=== PATIENT | female | born 1945 | race Caucasian/White ===

== ENCOUNTER 2018-12-03 19:05 | Inpatient (IN) | payer MEDICARE, BC ==
[~2018-12-03] VITALS: Ht 157.5 cm; Wt 90.7 kg
[~2018-12-03 19:05] MED LIST: ALBU8HFA4 IH; ASPI81TA31 PO; ATOR40TA PO; BENA40TA67 PO; DILT240C2 PO; ESOM40CA PO; LEVO125T8 PO; METH500T4 PO; MULT1CAP34 PO; NITR0.4T48 SL; ONDA4TAB5 PO; PROC5TAB59 PO
[2018-12-03] MEDS ORDERED: NITROGLYCERIN 0.4 MG/TAB BOTTLE SL ONE ×2 (19:15→19:30)
[2018-12-03] MEDS ORDERED: NITROGLYCERIN OINT 1 GM PACKET TP ONE ×2 (19:15→19:30)
--- NOTE | 2018-12-03 19:16 | NUR ---
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
--- NOTE | 2018-12-03 19:20 | NUR ---
Pt. ambulated into ED w/ c/o 2/10 pressure like CP that radiated to shoulder, reports taking 1 nitro tab and 3 baby aspirin prior to arrival, denies WALTERS/F/C/N/V, skin is warm, dry, A/Ox4, pt. put on property assessment monitor,
--- NOTE | 2018-12-03 19:30 | NUR ---
at bedside for MSE, phleb. tech. at bedside for blood draw - specimens collected and sent to lab,
--- NOTE | 2018-12-03 19:31 | NUR ---
1 dose nitro tab given SL - CP resolved,
[2018-12-03 19:33] LABS: BASOPHILS # (AUTO) 0.1 K/uL (0.0-8.0); BASOPHILS % (AUTO) 1.1 % (0.0-2.0); EOSINOPHILS # (AUTO) 0.4 K/uL (0.0-0.7); EOSINOPHILS % (AUTO) 3.4 % (0.0-7.0); HEMATOCRIT 38.7 % (31.2-41.9); HEMOGLOBIN 12.9 g/dL (10.9-14.3); LYMPHOCYTES # (AUTO) 2.7 K/uL (20.0-40.0); LYMPHOCYTES % (AUTO) 25.7 % (20.5-51.5); MEAN CORPUSCULAR HEMOGLOBIN 28.2 uug (24.7-32.8); MEAN CORPUSCULAR HGB CONC 34 g/dL (32.3-35.6); MEAN CORPUSCULAR VOLUME 84.2 fL (75.5-95.3); MONOCYTES # (AUTO) 0.7 K/uL (2.0-10.0); MONOCYTES % (AUTO) 6.6 % (0.0-11.0); NEUTROPHILS # (AUTO) 6.7 K/uL (1.8-8.9); NEUTROPHILS % (AUTO) 63.2 % (38.5-71.5); PLATELET COUNT (AUTO) 417 K/uL (179-408); RED BLOOD CELL COUNT(AUTO) 4.59 MIL/uL (3.63-4.92); WHITE BLOOD COUNT (AUTO) 10.6 K/uL (3.8-11.8)
[2018-12-03 19:36] LABS: CARBON DIOXIDE 29 mmol/L (21-32); CHLORIDE 95 mmol/L (98-107); CREATININE 0.9 mg/dL (0.6-1.3); GLUCOSE 118 mg/dL (74-106); POTASSIUM 3.2 mmol/L (3.5-5.1); UREA NITROGEN, BLOOD 15 mg/dL (7-18)
[2018-12-03] MEDS ORDERED: ACETAMINOPHEN ES 500 MG TABLET PO ONE (19:45)
[2018-12-03 19:49] LABS: ALANINE AMINOTRANSFERASE 117 U/L (14-59); ALKALINE PHOSPHATASE 170 U/L (50-136); ASPARTATE AMINOTRANSFERASE 62 U/L (15-37); BILIRUBIN,DIRECT 0.1 mg/dL (0.0-0.2); BILIRUBIN,TOTAL 0.4 mg/dL (0.2-1.0)
[2018-12-03] MEDS ORDERED: ACETAMINOPHEN ES 500 MG TABLET ONE (19:53)
[2018-12-03] MEDS ORDERED: GABA-534 PO (20:00)
[2018-12-03] MEDS ORDERED: ACET1TAB14 PO (20:00)
[2018-12-03] MEDS ORDERED: PROC10TA29 PO (20:00)
[2018-12-03] MEDS ORDERED: TIOT4MIS3 IH (20:00)
[2018-12-03] MEDS ORDERED: DICY20TA11 PO (20:00)
[2018-12-03] MEDS ORDERED: BENZ-13 PO (20:00)
[2018-12-03] MEDS ORDERED: MAG355OR23 PO (20:00)
[2018-12-03] MEDS ORDERED: ONDA8TAB6 PO (20:00)
[2018-12-03] MEDS ORDERED: [UNRECOGNIZED DRUG - CODE] PO (20:00)
[2018-12-03] MEDS ORDERED: LEVO100T10 PO (20:00)
--- NOTE | 2018-12-03 20:16 | NUR ---
Gave pt. 2 tangerines for low potassium level per Dr. Lang, called [facility] for panel call
--- NOTE | 2018-12-03 20:20 | NUR ---
Awaiting call back from Dr. Gill Addendum: 12/03/18 at [address] Valente
--- NOTE | 2018-12-03 20:27 | NUR ---
Called [facility] for Cardio consult - Dr. Lai on the phone w/ Dr. Lang
--- NOTE | 2018-12-03 20:29 | NUR ---
Called for bed - pt. to go into room 205 w/ Janki CERVANTES
--- NOTE | 2018-12-03 20:35 | NUR ---
Called to give report - awaiting call back, pt. given apple juice, NAD
--- NOTE | 2018-12-03 21:05 | NUR ---
Dr. Lang called and gave report to Janki
--- NOTE | 2018-12-03 21:19 | NUR ---
Pt. taken off unit via stretcher by MARJORIE Morrison LVN, accompanied by , all belongings w/ pt.,
--- NOTE | 2018-12-03 21:20 | NUR ---
Received patient from the ER. No signs of acute distress noted. Patient had no complaints of pain or SOB. Heplock on the right hand is intact and patent. is at the bedside. Assessment done. Safety measures initiated. Bed is low and locked, call light is within reach. Will continue to monitor.
[2018-12-03 21:51] VITALS: BP 132/58
[2018-12-03] MEDS ORDERED: GABAPENTIN 300 MG CAPSULE PO PRN (23:30)
[2018-12-03] MEDS ORDERED: Z GUARD REMEDY PASTE 57 GM TUBE TOP PRN (23:30)
[2018-12-03] MEDS ORDERED: ONDANSETRON 4 MG/2 ML VIAL IV PRN (23:30)
[2018-12-03] MEDS ORDERED: ACETAMINOPHEN 325 MG TABLET PO PRN (23:30)
[2018-12-03] MEDS ORDERED: ACETAMINOPHEN/CODEINE 300-60 MG TABLET PO PRN (23:30)
[2018-12-04 00:05] VITALS: BP 123/57
[2018-12-04] MEDS ORDERED: ALBUTEROL SULFATE 2.5 MG/3 ML NEBU IH PRN (00:30)
[2018-12-04] MEDS ORDERED: ALBUTEROL SULFATE 8 GM HFA.AER.AD IH SCH ×2 (01:00)
[2018-12-04 04:00] VITALS: BP 125/58
[2018-12-04 05:54] LABS: BASOPHILS # (AUTO) 0.1 K/uL (0.0-8.0); EOSINOPHILS # (AUTO) 0.4 K/uL (0.0-0.7); EOSINOPHILS % (AUTO) 4.9 % (0.0-7.0); HEMATOCRIT 35.8 % (31.2-41.9); HEMOGLOBIN 11.9 g/dL (10.9-14.3); LYMPHOCYTES # (AUTO) 2.5 K/uL (20.0-40.0); LYMPHOCYTES % (AUTO) 28.5 % (20.5-51.5); MEAN CORPUSCULAR HEMOGLOBIN 27.8 uug (24.7-32.8); MEAN CORPUSCULAR HGB CONC 33 g/dL (32.3-35.6); MEAN CORPUSCULAR VOLUME 83.8 fL (75.5-95.3); MONOCYTES # (AUTO) 0.9 K/uL (2.0-10.0); NEUTROPHILS # (AUTO) 4.8 K/uL (1.8-8.9); NEUTROPHILS % (AUTO) 55.6 % (38.5-71.5); PLATELET COUNT (AUTO) 363 K/uL (179-408); RED BLOOD CELL COUNT(AUTO) 4.27 MIL/uL (3.63-4.92); WHITE BLOOD COUNT (AUTO) 8.7 K/uL (3.8-11.8)
[2018-12-04 06:18] LABS: ALANINE AMINOTRANSFERASE 94 U/L (14-59); ALKALINE PHOSPHATASE 139 U/L (50-136); ASPARTATE AMINOTRANSFERASE 47 U/L (15-37); BILIRUBIN,TOTAL 0.3 mg/dL (0.2-1.0); CARBON DIOXIDE 33 mmol/L (21-32); CHLORIDE 97 mmol/L (98-107); CHOLESTEROL 137 mg/dL (<200); CREATININE 0.8 mg/dL (0.6-1.3); GLUCOSE 107 mg/dL (74-106); HDL CHOLESTEROL 46 mg/dL (40-60); MAGNESIUM 1.7 mg/dL (1.8-2.4); PHOSPHOROUS 4.3 mg/dL (2.5-4.9); POTASSIUM 2.9 mmol/L (3.5-5.1); THYROID STIMULATING HORMONE 3.273 mIU/mL (0.358-3.740); TRIGLYCERIDES 94 MG/DL (30-150); UREA NITROGEN, BLOOD 18 mg/dL (7-18)
--- NOTE | 2018-12-04 06:35 | NUR ---
Patient slept well throughout shift. Had no complaints of SOB. Patient is 96% on 2L O2. Tele shows NSR at 66 BPM. At times patient was jennifer in the low 50s or high 40s, but patient denied any dizziness, lightheadedness, nausea, or chest pain. Tylenol #4 was given for pain and was effective. No signs of acute distress. Safety measures given. Will endorse to next shift.
[2018-12-04] MEDS: PANTOPRAZOLE SODIUM 40 MG TABLET.DR PO SCH ×2 (06:45→17:07)
--- NOTE | 2018-12-04 07:10 | NUR ---
RECEIVED REPORT FROM NITRO WORKER, PATIENT IN BED, NO DISTRESS NOTED AT THIS TIME. MEDICATIONS AT BEDSIDE TAKEN TO PHARMACY. BED IN LOW POSITION, SIDE RAILS UP X2. CALL LIGHT IN REACH.
[2018-12-04] MEDS ORDERED: LEVOTHYROXINE SODIUM 100 MCG TABLET PO SCH (07:30)
[2018-12-04 08:57] VITALS: BP 129/52
[2018-12-04] MEDS ORDERED: ASPIRIN 81 MG TAB.CHEW PO SCH (09:00)
[2018-12-04] MEDS ORDERED: POTASSIUM CHLORIDE 20 MEQ POWDER PACKET PO ONE (10:00)
[2018-12-04] MEDS ORDERED: POTASSIUM CHLORIDE 20 MEQ TAB.PRT.SR PO ONE ×2 (10:00→14:00)
[2018-12-04] MEDS ORDERED: MAGNESIUM SULFATE/D5W 100 ML IV SCH (10:00)
[2018-12-04] MEDS: POTASSIUM CHLORIDE 50 ML IV SCH ×2 (10:43→11:00)
[2018-12-04 11:07] LABS: ABG BASE EXCESS 6.9 mmol/L; ABG HCO3 30.9 mmol/L; ABG PCO2 41.9 mmHg (35.0-45.0); ABG PH 7.486 (7.350-7.450); ABG PO2 75.3 mmHg (75.0-100.0); ABG SITE LEFT RADIAL; ABG TOTAL HEMOGLOBIN 12.7 G/dL (12.0-16.0); COHb 1.4 % (0.5-1.5); MetHb 0.2 % (0.0-1.5); VENT MODE ROOM AIR
[2018-12-04] MEDS: MAGNESIUM SULFATE/D5W 100 ML IV SCH ×2 (11:35→12:35)
[2018-12-04 11:37] VITALS: BP 137/65
--- NOTE | 2018-12-04 12:31 | NUR ---
PATIENT UNABLE TO TOLERATE IV POTASSIUM, ORDERS RECEIVED BY DR. LITTLE TO ADD LIDOCAINE TO POTASSIUM FOR ADMINISTRATION, PATIENT REFUSING PILLS SHE HAS A SENSITIVE STOMACH. ONLY HALF A BAG GIVEN OF THE THE FIRST BAG OF POTASSIUM.
[2018-12-04] MEDS ORDERED: DEXTROSE 5% IV ONE (13:30)
[2018-12-04] MEDS ORDERED: POTASSIUM CHLORIDE IV ONE (13:30)
[2018-12-04] MEDS ORDERED: LIDOCAINE MPF 1% IV ONE (13:30)
[2018-12-04 15:29] VITALS: BP 138/61
[2018-12-04] MEDS ORDERED: ATORVASTATIN 40 MG TABLET PO SCH (18:00)
--- NOTE | 2018-12-04 18:35 | NUR ---
PATIENT WAS GIVEN DISCHARGE INSTRUCTIONS, IV REMOVED, AND BELONGINGS ACCOUNTED FOR DISCHARGE. PHARMACY HOLD MEDICATIONS WERE RELEASED BACK TO PATIENT. PATIENT IN NO DISTRESS AT TIME OF DISCHARGE. PATIENT TAKEN TO POT ROOM SUPERVISOR AREA IN THE FRONT OF HOSPITAL BY WHEELCHAIR WHERE SHE WAS MET BY HER .
[2018-12-05] MEDS ORDERED: LEVOTHYROXINE SODIUM 100 MCG TABLET PO SCH (07:30)
== END 2018-12-04 18:35 | disposition home or self-care (01) | DRG 311 ==
LOC: ER 19:07 → TELE 21:09
PROVIDERS: ADMIT Nurse Practitioner Acute Care; ATTEND Nurse Practitioner Acute Care
DX: I20.1 Angina pectoris with documented spasm (principal); I10 Essential (primary) hypertension; Z87.891 Personal history of nicotine dependence; E06.3 Autoimmune thyroiditis; E87.6 Hypokalemia; E83.42 Hypomagnesemia; E78.5 Hyperlipidemia, unspecified; K21.9 Gastro-esophageal reflux disease without esophagitis; Z79.890 Hormone replacement therapy; Z79.82 Long term (current) use of aspirin; Z79.899 Other long term (current) drug therapy; Z82.3 Family history of stroke; Z82.5 Family history of asthma and other chronic lower respiratory diseases; R74.0 Nonspecific elevation of levels of transaminase and lactic acid dehydrogenase [LDH]
CPT/HCPCS: 36415; 36600; 70030-TC; 71045; 83735; 84100; 84443; 85025; 93005; 93307; A4663; A9150; G0378; J2001; J3475; J3480; J7040; J7060

== ENCOUNTER 2019-04-19 08:28 | Inpatient (IN) | payer MEDICARE, BC ==
[~2019-04-19] VITALS: Ht 160 cm; Wt 89.8 kg
[~2019-04-19 08:28] MED LIST changes: +ACET1TAB14 PO; -BENA40TA67 PO; +BENZ-13 PO; +DICY20TA11 PO; +GABA-534 PO; +LEVO100T10 PO; -LEVO125T8 PO; +MAG355OR23 PO; -ONDA4TAB5 PO; +ONDA8TAB6 PO; +PROC10TA29 PO; -PROC5TAB59 PO; +TIOT4MIS3 IH; +[UNRECOGNIZED DRUG - CODE] PO
[2019-04-19] MEDS ORDERED: HYDROMORPHONE 1 MG/1 ML DISP.SYRIN IV ONE (09:00)
[2019-04-19] MEDS ORDERED: IV NORMAL SALINE 1000 ML BAG IV ONE (09:00)
[2019-04-19] MEDS ORDERED: ONDANSETRON 4 MG/2 ML VIAL IV ONE (09:00)
[2019-04-19] MEDS ORDERED: ONDANSETRON 4 MG/2 ML VIAL ONE ×2 (09:14→10:18)
[2019-04-19] MEDS ORDERED: HYDROMORPHONE 1 MG/1 ML DISP.SYRIN ONE (09:14)
[2019-04-19 09:33] LABS: BASOPHILS # (AUTO) 0.1 K/uL (0.0-8.0); BASOPHILS % (AUTO) 0.5 % (0.0-2.0); EOSINOPHILS % (AUTO) 0.1 % (0.0-7.0); HEMATOCRIT 39.7 % (31.2-41.9); HEMOGLOBIN 12.8 g/dL (10.9-14.3); LYMPHOCYTES # (AUTO) 0.9 K/uL (20.0-40.0); LYMPHOCYTES % (AUTO) 8.1 % (20.5-51.5); MEAN CORPUSCULAR HEMOGLOBIN 27.7 uug (24.7-32.8); MEAN CORPUSCULAR HGB CONC 32 g/dL (32.3-35.6); MEAN CORPUSCULAR VOLUME 85.6 fL (75.5-95.3); MONOCYTES # (AUTO) 0.3 K/uL (2.0-10.0); NEUTROPHILS # (AUTO) 9.8 K/uL (1.8-8.9); NEUTROPHILS % (AUTO) 88.3 % (38.5-71.5); PLATELET COUNT (AUTO) 371 K/uL (179-408); RED BLOOD CELL COUNT(AUTO) 4.64 MIL/uL (3.63-4.92); WHITE BLOOD COUNT (AUTO) 11.1 K/uL (3.8-11.8)
[2019-04-19 09:41] LABS: CARBON DIOXIDE 27 mmol/L (21-32); CHLORIDE 104 mmol/L (98-107); GLUCOSE 165 mg/dL (74-106); UREA NITROGEN, BLOOD 16 mg/dL (7-18)
[2019-04-19 09:47] LABS: ALANINE AMINOTRANSFERASE 58 U/L (14-59); ALKALINE PHOSPHATASE 160 U/L (50-136); ASPARTATE AMINOTRANSFERASE 26 U/L (15-37); BILIRUBIN,DIRECT 0.1 mg/dL (0.0-0.2); BILIRUBIN,TOTAL 0.4 mg/dL (0.2-1.0); LIPASE 54 U/L (73-393); TOTAL PROTEIN, SERUM 7.1 g/dL (6.4-8.2)
[2019-04-19] MEDS ORDERED: ONDANSETRON IV *ER 4 MG/2 ML VIAL IV ONE (10:15)
[2019-04-19] MEDS ORDERED: DICYCLOMINE HCL 20 MG TABLET PO PRN (12:15)
[2019-04-19] MEDS ORDERED: PROCHLORPERAZINE MALEATE 10 MG TABLET PO PRN (12:15)
[2019-04-19] MEDS ORDERED: GABAPENTIN 300 MG CAPSULE PO PRN (12:15)
[2019-04-19] MEDS ORDERED: BENZONATATE 100 MG CAPSULE PO PRN (12:15)
[2019-04-19] MEDS ORDERED: NITROGLYCERIN 0.4 MG/TAB BOTTLE SL PRN ×2 (12:15→13:45)
[2019-04-19] MEDS ORDERED: MAGNESIUM HYDROXIDE 30 ML LIQUID UDC PO PRN (12:30)
[2019-04-19] MEDS ORDERED: TEMAZEPAM 15 MG CAPSULE PO PRN (12:30)
[2019-04-19] MEDS ORDERED: HYDROMORPHONE 1 MG/1 ML DISP.SYRIN IV PRN (12:30)
[2019-04-19] MEDS ORDERED: ONDANSETRON 4 MG/2 ML VIAL IV PRN (12:30)
[2019-04-19 13:07] VITALS: BP 154/63
[2019-04-19] MEDS: IV D5 1/2 NS 1000 ML 1,000 ML IV PRN (13:26)
[2019-04-19] MEDS ORDERED: BENA10TA11 PO (13:26)
[2019-04-19] MEDS ORDERED: FLUO10CA26 PO (13:27)
[2019-04-19 15:41] VITALS: BP 146/58
[2019-04-19] MEDS ORDERED: DIATR MEGLU/DIATRIZOATE SODIUM 30 ML SOLUTION ONE (15:55)
[2019-04-19] MEDS: PANTOPRAZOLE SODIUM 40 MG TABLET.DR PO SCH (16:19)
[2019-04-19] MEDS: ACETAMINOPHEN 325 MG TABLET PO PRN (16:42)
[2019-04-19 20:00] VITALS: BP 155/66
[2019-04-19] MEDS: ATORVASTATIN 40 MG TABLET PO SCH (20:10)
[2019-04-19] MEDS: ASPIRIN 81 MG TAB.CHEW PO SCH (20:10)
[2019-04-20] VITALS: BP 129/54
[2019-04-20 04:00] VITALS: BP 151/75
[2019-04-20] MEDS: IV D5 1/2 NS 1000 ML 1,000 ML IV PRN ×2 (04:32→18:47)
[2019-04-20] MEDS: LEVOTHYROXINE SODIUM 150 MCG TABLET PO SCH (06:30)
[2019-04-20 06:49] LABS: BASOPHILS # (AUTO) 0.1 K/uL (0.0-8.0); BASOPHILS % (AUTO) 0.7 % (0.0-2.0); EOSINOPHILS # (AUTO) 0.2 K/uL (0.0-0.7); EOSINOPHILS % (AUTO) 2.4 % (0.0-7.0); HEMATOCRIT 35.6 % (31.2-41.9); HEMOGLOBIN 11.3 g/dL (10.9-14.3); LYMPHOCYTES # (AUTO) 2.6 K/uL (20.0-40.0); LYMPHOCYTES % (AUTO) 30.8 % (20.5-51.5); MEAN CORPUSCULAR HEMOGLOBIN 27.6 uug (24.7-32.8); MEAN CORPUSCULAR HGB CONC 32 g/dL (32.3-35.6); MEAN CORPUSCULAR VOLUME 86.5 fL (75.5-95.3); MONOCYTES # (AUTO) 0.8 K/uL (2.0-10.0); MONOCYTES % (AUTO) 9.2 % (0.0-11.0); NEUTROPHILS # (AUTO) 4.9 K/uL (1.8-8.9); NEUTROPHILS % (AUTO) 56.9 % (38.5-71.5); PLATELET COUNT (AUTO) 325 K/uL (179-408); RED BLOOD CELL COUNT(AUTO) 4.11 MIL/uL (3.63-4.92); WHITE BLOOD COUNT (AUTO) 8.5 K/uL (3.8-11.8)
[2019-04-20 07:10] LABS: ALANINE AMINOTRANSFERASE 48 U/L (14-59); ALKALINE PHOSPHATASE 137 U/L (50-136); ASPARTATE AMINOTRANSFERASE 30 U/L (15-37); BILIRUBIN,TOTAL 0.4 mg/dL (0.2-1.0); CARBON DIOXIDE 27 mmol/L (21-32); CHLORIDE 107 mmol/L (98-107); CHOLESTEROL 116 mg/dL (<200); CREATININE 0.9 mg/dL (0.6-1.3); GLUCOSE 104 mg/dL (74-106); HDL CHOLESTEROL 45 mg/dL (40-60); MAGNESIUM 1.7 mg/dL (1.8-2.4); PHOSPHOROUS 3.5 mg/dL (2.5-4.9); POTASSIUM 3.3 mmol/L (3.5-5.1); TOTAL PROTEIN, SERUM 6.2 g/dL (6.4-8.2); TRIGLYCERIDES 66 MG/DL (30-150); UREA NITROGEN, BLOOD 12 mg/dL (7-18)
[2019-04-20 07:44] LABS: THYROID STIMULATING HORMONE 2.582 mIU/mL (0.358-3.740)
[2019-04-20] MEDS ORDERED: Medication Not On Formulary EA (Multivitamins (Multivitamin) 1 EACH) PO SCH (09:00)
[2019-04-20] MEDS ORDERED: LEVOTHYROXINE SODIUM 100 MCG TABLET PO SCH (09:00)
[2019-04-20] MEDS: POTASSIUM CHLORIDE 50 ML IV SCH ×2 (09:00→09:30)
[2019-04-20] MEDS ORDERED: FLUOXETINE HCL 10 MG CAPSULE PO SCH (09:00)
[2019-04-20] MEDS: BENAZEPRIL HCL 10 MG TABLET PO SCH (09:42)
[2019-04-20] MEDS: DILTIAZEM HCL CD 240 MG CAP.SR.24H PO SCH (09:42)
[2019-04-20] MEDS: FLUOXETINE HCL 20 MG CAPSULE PO SCH (09:44)
[2019-04-20] MEDS: MULTIVITAMINS,THERAPEUTIC TABLET PO SCH (09:44)
[2019-04-20] MEDS: FLUOXETINE HCL 10 MG CAPSULE PO SCH (09:44)
[2019-04-20] MEDS: PANTOPRAZOLE SODIUM 40 MG TABLET.DR PO SCH ×2 (09:45→17:16)
[2019-04-20] MEDS ORDERED: POTASSIUM CHLORIDE 20 MEQ TAB.PRT.SR PO ONE (10:30)
[2019-04-20] MEDS ORDERED: POTASSIUM CHLORIDE 10 MEQ, LIDOCAINE-MPF 1% 1 ML in IV DEXTROSE 5% 100 ML IV SCH (11:00)
[2019-04-20 12:05] VITALS: BP 154/79
[2019-04-20] MEDS ORDERED: LOPERAMIDE HCL 1 MG/5 ML UDC PO PRN (12:15)
[2019-04-20] MEDS: MAGNESIUM SULFATE/D5W 100 ML IV SCH ×2 (12:39→13:45)
[2019-04-20 15:39] VITALS: BP 150/69
[2019-04-20 20:00] VITALS: BP 148/63
[2019-04-20] MEDS: ATORVASTATIN 40 MG TABLET PO SCH (21:04)
[2019-04-20] MEDS: ACETAMINOPHEN 325 MG TABLET PO PRN (21:04)
[2019-04-20] MEDS: ASPIRIN 81 MG TAB.CHEW PO SCH (21:04)
[2019-04-21 06:12] LABS: BASOPHILS # (AUTO) 0.1 K/uL (0.0-8.0); EOSINOPHILS # (AUTO) 0.3 K/uL (0.0-0.7); EOSINOPHILS % (AUTO) 3.8 % (0.0-7.0); HEMATOCRIT 38.8 % (31.2-41.9); HEMOGLOBIN 12.5 g/dL (10.9-14.3); LYMPHOCYTES # (AUTO) 2.9 K/uL (20.0-40.0); LYMPHOCYTES % (AUTO) 33.7 % (20.5-51.5); MEAN CORPUSCULAR HEMOGLOBIN 27.9 uug (24.7-32.8); MEAN CORPUSCULAR HGB CONC 32 g/dL (32.3-35.6); MEAN CORPUSCULAR VOLUME 86.7 fL (75.5-95.3); MONOCYTES # (AUTO) 0.7 K/uL (2.0-10.0); MONOCYTES % (AUTO) 8.4 % (0.0-11.0); NEUTROPHILS # (AUTO) 4.5 K/uL (1.8-8.9); NEUTROPHILS % (AUTO) 53.1 % (38.5-71.5); PLATELET COUNT (AUTO) 373 K/uL (179-408); RED BLOOD CELL COUNT(AUTO) 4.47 MIL/uL (3.63-4.92); WHITE BLOOD COUNT (AUTO) 8.5 K/uL (3.8-11.8)
[2019-04-21] MEDS: LEVOTHYROXINE SODIUM 150 MCG TABLET PO SCH (06:12)
[2019-04-21 06:28] LABS: CARBON DIOXIDE 26 mmol/L (21-32); CHLORIDE 106 mmol/L (98-107); CREATININE 0.9 mg/dL (0.6-1.3); GLUCOSE 102 mg/dL (74-106); POTASSIUM 3.9 mmol/L (3.5-5.1); UREA NITROGEN, BLOOD 6 mg/dL (7-18)
[2019-04-21 06:38] VITALS: BP 159/75
[2019-04-21] MEDS: IV D5 1/2 NS 1000 ML 1,000 ML IV PRN (06:42)
[2019-04-21 08:57] VITALS: BP 156/72
[2019-04-21] MEDS: FLUOXETINE HCL 10 MG CAPSULE PO SCH (08:57)
[2019-04-21] MEDS: PANTOPRAZOLE SODIUM 40 MG TABLET.DR PO SCH (08:57)
[2019-04-21] MEDS: FLUOXETINE HCL 20 MG CAPSULE PO SCH (08:57)
[2019-04-21] MEDS: BENAZEPRIL HCL 10 MG TABLET PO SCH (08:57)
[2019-04-21] MEDS: MULTIVITAMINS,THERAPEUTIC TABLET PO SCH (08:57)
[2019-04-21] MEDS: DILTIAZEM HCL CD 240 MG CAP.SR.24H PO SCH (08:57)
== END 2019-04-21 11:20 | disposition home or self-care (01) | DRG 389 ==
LOC: ER 08:28 → TELE3 12:10 → MEDSURG3 04-20 13:02
PROVIDERS: ADMIT Nurse Practitioner Acute Care; ATTEND Nurse Practitioner Acute Care
DX: K56.600 Partial intestinal obstruction, unspecified as to cause (principal); J98.11 Atelectasis; E44.0 Moderate protein-calorie malnutrition; K52.9 Noninfective gastroenteritis and colitis, unspecified; K21.9 Gastro-esophageal reflux disease without esophagitis; K44.9 Diaphragmatic hernia without obstruction or gangrene; Z90.49 Acquired absence of other specified parts of digestive tract; I10 Essential (primary) hypertension; E66.01 Morbid (severe) obesity due to excess calories; Z68.35 Body mass index [BMI] 35.0-35.9, adult; Z71.3 Dietary counseling and surveillance; Z79.890 Hormone replacement therapy; H40.9 Unspecified glaucoma; E83.42 Hypomagnesemia; E78.5 Hyperlipidemia, unspecified; E03.9 Hypothyroidism, unspecified
CPT/HCPCS: 36415; 70030-TC; 71045; 74250; 83605; 83690; 83735; 84100; 84443; 85025; 85730; 93005; A4663; G0378; J1170; J2001; J2405; J3475; J3480; J3490; J7030; J7060; Q9963

== ENCOUNTER 2020-04-06 22:16 | Emergency (ER) | payer MEDICARE, BC ==
[~2020-04-06] VITALS: Ht 157.5 cm; Wt 115.2 kg
[~2020-04-06 22:16] MED LIST changes: -ALBU8HFA4 IH; +BENA10TA74 PO; +DILT-3 PO; -DILT240C2 PO; +FLUO10CA26 PO; -METH500T4 PO; -TIOT4MIS3 IH
--- NOTE | 2020-04-06 22:31 | NUR ---
Dr. Lang at bedside for MSE.
[2020-04-06] MEDS ORDERED: NITROGLYCERIN 0.4 MG/TAB BOTTLE SL ONE ×2 (22:40→22:45)
[2020-04-06] MEDS ORDERED: NITROGLYCERIN OINT 1 GM PACKET TP ONE ×2 (22:41→22:45)
[2020-04-06] MEDS ORDERED: BENA20TA78 PO (22:43)
[2020-04-06] MEDS ORDERED: DULO30CA2 PO (22:43)
[2020-04-06] MEDS ORDERED: ESOM40CA PO (22:43)
[2020-04-06] MEDS ORDERED: TIOT4MIS3 IH (22:43)
[2020-04-06] MEDS ORDERED: ESTRADIOL 0.01% (22:43)
[2020-04-06] MEDS ORDERED: ACET1TAB14 PO (22:43)
[2020-04-06] MEDS ORDERED: ALBU8HFA4 INH (22:43)
[2020-04-06] MEDS ORDERED: ACETAMINOPHEN ES 500 MG TABLET PO ONE (22:45)
--- NOTE | 2020-04-06 22:45 | NUR ---
Patient states no longer having chest pain, held nitroglycerin.
--- NOTE | 2020-04-06 23:00 | NUR ---
Xray at bedside.
[2020-04-06 23:08] LABS: BASOPHILS # (AUTO) 0.1 K/uL (0.0-8.0); BASOPHILS % (AUTO) 0.9 % (0.0-2.0); EOSINOPHILS # (AUTO) 0.4 K/uL (0.0-0.7); HEMATOCRIT 36.5 % (31.2-41.9); HEMOGLOBIN 11.7 g/dL (10.9-14.3); LYMPHOCYTES # (AUTO) 2.8 K/uL (20.0-40.0); LYMPHOCYTES % (AUTO) 24.3 % (20.5-51.5); MEAN CORPUSCULAR HEMOGLOBIN 27.4 uug (24.7-32.8); MEAN CORPUSCULAR HGB CONC 32 g/dL (32.3-35.6); MEAN CORPUSCULAR VOLUME 85.8 fL (75.5-95.3); MONOCYTES # (AUTO) 1.1 K/uL (2.0-10.0); MONOCYTES % (AUTO) 9.5 % (0.0-11.0); NEUTROPHILS # (AUTO) 7.2 K/uL (1.8-8.9); NEUTROPHILS % (AUTO) 62.3 % (38.5-71.5); PLATELET COUNT (AUTO) 381 K/uL (179-408); RED BLOOD CELL COUNT(AUTO) 4.26 MIL/uL (3.63-4.92); WHITE BLOOD COUNT (AUTO) 11.6 K/uL (3.8-11.8)
[2020-04-06 23:12] LABS: CARBON DIOXIDE 30 mmol/L (21-32); CHLORIDE 104 mmol/L (98-107); CREATININE 1.5 mg/dL (0.6-1.3); GLUCOSE 119 mg/dL (74-106); POTASSIUM 4.2 mmol/L (3.5-5.1); UREA NITROGEN, BLOOD 21 mg/dL (7-18)
--- NOTE | 2020-04-06 23:15 | NUR ---
Received patient belongings from patient's , left his phone number , wishes to be informed if patient going to admitted or going home.
[2020-04-06 23:25] LABS: ALANINE AMINOTRANSFERASE 32 U/L (14-59); ALKALINE PHOSPHATASE 121 U/L (50-136); ASPARTATE AMINOTRANSFERASE 22 U/L (15-37); BILIRUBIN,DIRECT < 0.1 mg/dL (0.0-0.2); BILIRUBIN,TOTAL 0.2 mg/dL (0.2-1.0); TOTAL PROTEIN, SERUM 7.2 g/dL (6.4-8.2)
[2020-04-06] MEDS ORDERED: GUAIFENESIN/CODEINE 5 ML LIQUID UDC PO ONE (23:30)
[2020-04-06] MEDS ORDERED: GUAIFENESIN/CODEINE 5 ML LIQUID UDC ONE (23:35)
--- NOTE | 2020-04-07 02:40 | NUR ---
Patient discharged to home in stable condition. Written and verbal after care instructions given. Patient verbalizes understanding of instructions. Stressed follow up or return to ER for worsening s/s. Patient out of ER via wheelchair, no acute signs of distress, VSS, all belongings taken, IV site discontinued, to be driven home by via private vehicle, assisted patient on transfer from wheelchair to car, no falls noted.
[2020-04-07 02:42] VITALS: BP 142/73
== END 2020-04-07 02:42 | disposition home or self-care (01) ==
LOC: ER 22:18
DX: I20.1 Angina pectoris with documented spasm (principal); I44.0 Atrioventricular block, first degree; E66.9 Obesity, unspecified; E78.5 Hyperlipidemia, unspecified; E03.9 Hypothyroidism, unspecified; K21.9 Gastro-esophageal reflux disease without esophagitis; Z79.899 Other long term (current) drug therapy
CPT/HCPCS: 36415; 70030-TC; 71045; 85025; 93005; A4663

== ENCOUNTER 2020-05-05 14:42 | Emergency (ER) | payer MEDICARE, BC ==
[~2020-05-05] VITALS: Ht 157.5 cm; Wt 112.0 kg
[~2020-05-05 14:42] MED LIST changes: +ALBU8HFA4 INH; -BENA10TA74 PO; +BENA20TA78 PO; +DULO30CA2 PO; +ESTRADIOL 0.01%; -FLUO10CA26 PO; -PROC10TA29 PO; +TIOT4MIS3 IH; -[UNRECOGNIZED DRUG - CODE] PO
[2020-05-05] MEDS ORDERED: IV NORMAL SALINE 1000 ML BAG IV ONE (15:15)
[2020-05-05 16:17] LABS: BASOPHILS % (AUTO) 0.2 % (0.0-2.0); EOSINOPHILS # (AUTO) 0.2 K/uL (0.0-0.7); EOSINOPHILS % (AUTO) 1.4 % (0.0-7.0); HEMATOCRIT 36.4 % (31.2-41.9); HEMOGLOBIN 11.6 g/dL (10.9-14.3); LYMPHOCYTES # (AUTO) 1.8 K/uL (20.0-40.0); LYMPHOCYTES % (AUTO) 11.5 % (20.5-51.5); MEAN CORPUSCULAR HEMOGLOBIN 27.2 uug (24.7-32.8); MEAN CORPUSCULAR HGB CONC 32 g/dL (32.3-35.6); MEAN CORPUSCULAR VOLUME 85.7 fL (75.5-95.3); MONOCYTES % (AUTO) 6.5 % (0.0-11.0); NEUTROPHILS # (AUTO) 12.3 K/uL (1.8-8.9); NEUTROPHILS % (AUTO) 80.4 % (38.5-71.5); PLATELET COUNT (AUTO) 426 K/uL (179-408); RED BLOOD CELL COUNT(AUTO) 4.25 MIL/uL (3.63-4.92); WHITE BLOOD COUNT (AUTO) 15.3 K/uL (3.8-11.8)
[2020-05-05 16:29] LABS: CARBON DIOXIDE 25 mmol/L (21-32); CHLORIDE 107 mmol/L (98-107); CREATININE 1.4 mg/dL (0.6-1.3); GLUCOSE 115 mg/dL (74-106); POTASSIUM 4.9 mmol/L (3.5-5.1); UREA NITROGEN, BLOOD 21 mg/dL (7-18)
[2020-05-05 16:34] LABS: ALANINE AMINOTRANSFERASE 26 U/L (14-59); ALKALINE PHOSPHATASE 123 U/L (50-136); ASPARTATE AMINOTRANSFERASE 33 U/L (15-37); BILIRUBIN,DIRECT 0.1 mg/dL (0.0-0.2); BILIRUBIN,TOTAL 0.6 mg/dL (0.2-1.0); LIPASE 39 U/L (73-393); TOTAL PROTEIN, SERUM 7.3 g/dL (6.4-8.2)
[2020-05-05] MEDS ORDERED: DIATR MEGLU/DIATRIZOATE SODIUM 30 ML BOTTLE ONE (16:46)
[2020-05-05] MEDS ORDERED: CRAN1CAP5 PO (16:58)
[2020-05-05] MEDS ORDERED: CALC-20 PO (16:58)
[2020-05-05] MEDS ORDERED: ALBU8.5H8 INH (16:58)
[2020-05-05] MEDS ORDERED: TROS60CA3 PO (16:58)
[2020-05-05] MEDS ORDERED: VORT10TA PO (16:58)
[2020-05-05] MEDS ORDERED: ALPR0.5T PO (16:58)
[2020-05-05 17:07] LABS: *BLOOD, URINE NEGATIVE (NEGATIVE); *CLARITY,URINE SLIGHTLY CLOUDY (CLEAR); *COLOR,URINE DARK YELLOW (YELLOW); *KETONES,URINE NEGATIVE (NEGATIVE); *UROBILINOGEN,URINE 0.2 E.U./dl (NORMAL); LEUKOCYTE ESTERASE ,URINE NEGATIVE (NEGATIVE); NITRITE, URINE NEGATIVE (NEGATIVE); PH,URINE 5.5 (5.0-8.0); UGLUCOSE NEGATIVE (NEGATIVE)
[2020-05-05 17:08] LABS: *BILIRUBIN,URIN 1+ (NEGATIVE)
[2020-05-05 17:31] VITALS: BP 112/66
[2020-05-05 17:42] LABS: BACTERIA,URINE 1 /HPF (NONE SEEN); RBC,URINE 0-3 /HPF (0-3); SQUAMOUS EPITHELIAL CELL,UR MANY /HPF (NONE SEEN); WBC,URINE 0-3 /HPF (0-3)
== END 2020-05-05 17:28 | disposition home or self-care (01) ==
LOC: ER 14:45
DX: R10.30 Lower abdominal pain, unspecified (principal); I44.0 Atrioventricular block, first degree; K57.30 Diverticulosis of large intestine without perforation or abscess without bleeding; J84.10 Pulmonary fibrosis, unspecified; K44.9 Diaphragmatic hernia without obstruction or gangrene; D72.829 Elevated white blood cell count, unspecified; Z79.82 Long term (current) use of aspirin; Z79.899 Other long term (current) drug therapy; Z82.3 Family history of stroke; Z82.5 Family history of asthma and other chronic lower respiratory diseases; J44.9 Chronic obstructive pulmonary disease, unspecified; K21.9 Gastro-esophageal reflux disease without esophagitis; I25.10 Atherosclerotic heart disease of native coronary artery without angina pectoris; E03.9 Hypothyroidism, unspecified; Z90.49 Acquired absence of other specified parts of digestive tract; E78.5 Hyperlipidemia, unspecified; E66.01 Morbid (severe) obesity due to excess calories; Z68.42 Body mass index [BMI] 45.0-49.9, adult
CPT/HCPCS: 36415; 70030-TC; 71045; 83690; 85025; 93005; A4663; J7030; Q9963

== ENCOUNTER 2021-02-24 18:17 | Emergency (ER) | payer MEDICARE, BC ==
[~2021-02-24] VITALS: Ht 157.5 cm; Wt 86.2 kg
[~2021-02-24 18:17] MED LIST changes: +ALBU8.5H8 INH; -ALBU8HFA4 INH; +ALPR0.5T PO; +CALC-953 PO; +CRAN1CAP5 PO; -DULO30CA2 PO; -GABA-534 PO; +TROS60CA3 PO; +VORT10TA PO
--- NOTE | 2021-02-24 19:00 | NUR ---
Patient resting on bed, knitting, with her at bedside. No acute distress noted.
[2021-02-24 19:35] VITALS: BP 123/65
--- NOTE | 2021-02-24 19:35 | NUR ---
Patient discharged to home in stable condition. Written and verbal after care instructions given. Patient verbalizes understanding of instructions. Stressed follow up or return to ER for worsening s/s. Patient ambulates with steady gait, V/S stable, left with all personal belongings, and was discharged via auto to the care of her .
== END 2021-02-24 19:35 | disposition home or self-care (01) ==
LOC: ER 18:19
DX: S09.90XA Unspecified injury of head, initial encounter (principal); W01.0XXA Fall on same level from slipping, tripping and stumbling without subsequent striking against object, initial encounter; Y92.89 Other specified places as the place of occurrence of the external cause; J44.9 Chronic obstructive pulmonary disease, unspecified; K21.9 Gastro-esophageal reflux disease without esophagitis; E66.01 Morbid (severe) obesity due to excess calories; Z68.34 Body mass index [BMI] 34.0-34.9, adult; E78.5 Hyperlipidemia, unspecified; E03.9 Hypothyroidism, unspecified; Z82.5 Family history of asthma and other chronic lower respiratory diseases; Z82.3 Family history of stroke; Z82.49 Family history of ischemic heart disease and other diseases of the circulatory system; Z79.82 Long term (current) use of aspirin; Z79.899 Other long term (current) drug therapy; Z79.890 Hormone replacement therapy; H40.9 Unspecified glaucoma; Z90.49 Acquired absence of other specified parts of digestive tract; F17.200 Nicotine dependence, unspecified, uncomplicated
CPT/HCPCS: 70450; A4663

== ENCOUNTER 2021-03-07 16:43 | Emergency (ER) | payer MEDICARE, BC ==
[~2021-03-07] VITALS: Ht 157.5 cm; Wt 86.2 kg
[2021-03-07] MEDS ORDERED: GABA-532 PO (17:05)
[2021-03-07] MEDS ORDERED: BENA20TA9 PO (17:05)
--- NOTE | 2021-03-07 17:06 | NUR ---
PT IS IN ROOM #2B. DR ZEPEDA EVALUATED THE PT.
[2021-03-07 17:19] LABS: BASOPHILS # (AUTO) 0.1 K/uL (0.0-8.0); BASOPHILS % (AUTO) 1.1 % (0.0-2.0); EOSINOPHILS # (AUTO) 0.6 K/uL (0.0-0.7); EOSINOPHILS % (AUTO) 5.4 % (0.0-7.0); HEMATOCRIT 41.2 % (31.2-41.9); LYMPHOCYTES # (AUTO) 3.4 K/uL (20.0-40.0); LYMPHOCYTES % (AUTO) 30.6 % (20.5-51.5); MEAN CORPUSCULAR HEMOGLOBIN 28.1 uug (24.7-32.8); MEAN CORPUSCULAR HGB CONC 32 g/dL (32.3-35.6); MEAN CORPUSCULAR VOLUME 89.2 fL (75.5-95.3); MONOCYTES # (AUTO) 0.9 K/uL (2.0-10.0); MONOCYTES % (AUTO) 8.2 % (0.0-11.0); NEUTROPHILS # (AUTO) 6.2 K/uL (1.8-8.9); NEUTROPHILS % (AUTO) 54.7 % (38.5-71.5); PLATELET COUNT (AUTO) 335 K/uL (179-408); RED BLOOD CELL COUNT(AUTO) 4.61 MIL/uL (3.63-4.92); WHITE BLOOD COUNT (AUTO) 11.3 K/uL (3.8-11.8)
[2021-03-07 17:20] LABS: CREATININE 1.1 mg/dL (0.6-1.3); POTASSIUM 4.5 mmol/L (3.5-5.1)
[2021-03-07 17:25] LABS: BILIRUBIN,DIRECT 0.1 mg/dL (0.0-0.2); BILIRUBIN,TOTAL 0.3 mg/dL (0.2-1.0); TOTAL PROTEIN, SERUM 7.5 g/dL (6.4-8.2)
[2021-03-07 17:56] LABS: *BILIRUBIN,URIN NEGATIVE (NEGATIVE); *BLOOD, URINE NEGATIVE (NEGATIVE); *CLARITY,URINE SLIGHTLY CLOUDY (CLEAR); *COLOR,URINE YELLOW (YELLOW); *KETONES,URINE NEGATIVE (NEGATIVE); *UROBILINOGEN,URINE 0.2 E.U./dl (NORMAL); LEUKOCYTE ESTERASE ,URINE 2+ (NEGATIVE); NITRITE, URINE POSITIVE (NEGATIVE); PH,URINE 8.5 (5.0-8.0); UGLUCOSE NEGATIVE (NEGATIVE)
[2021-03-07 18:03] LABS: BACTERIA,URINE MANY /HPF (NONE SEEN); RBC,URINE 0-3 /HPF (0-3); SQUAMOUS EPITHELIAL CELL,UR FEW /HPF (NONE SEEN)
[2021-03-07] MEDS ORDERED: CEPH500C2 PO (18:16)
--- NOTE | 2021-03-07 18:39 | NUR ---
PT WAS D/C'd TO HOME. D/C INSTRUCTIONS GIVEN TO THE PT BY DR ZEPEDA.
[2021-03-07 18:41] VITALS: BP 142/81
== END 2021-03-07 18:41 | disposition home or self-care (01) ==
LOC: ER 16:45
DX: N39.0 Urinary tract infection, site not specified (principal); R10.31 Right lower quadrant pain; J44.9 Chronic obstructive pulmonary disease, unspecified; Z90.49 Acquired absence of other specified parts of digestive tract; E03.9 Hypothyroidism, unspecified; Z79.890 Hormone replacement therapy; I10 Essential (primary) hypertension; E78.5 Hyperlipidemia, unspecified; I25.10 Atherosclerotic heart disease of native coronary artery without angina pectoris; Z87.19 Personal history of other diseases of the digestive system; Z88.1 Allergy status to other antibiotic agents; Z88.0 Allergy status to penicillin; Z88.2 Allergy status to sulfonamides; Z88.8 Allergy status to other drugs, medicaments and biological substances; Z82.3 Family history of stroke; Z82.5 Family history of asthma and other chronic lower respiratory diseases; Z82.49 Family history of ischemic heart disease and other diseases of the circulatory system; Z79.82 Long term (current) use of aspirin; Z79.899 Other long term (current) drug therapy
CPT/HCPCS: 36415; 83690; 85025; 87086; A4663

== ENCOUNTER 2021-07-17 13:36 | Inpatient (IN) | payer MEDICARE, BC ==
[~2021-07-17] VITALS: Ht 160 cm; Wt 90.7 kg
[~2021-07-17 13:36] MED LIST changes: -BENA20TA78 PO; +BENA20TA9 PO; +CEPH500C2 PO; +GABA-532 PO
--- NOTE | 2021-07-17 13:45 | NUR ---
There is no information about current home medications available, pt unable to provide the info.
--- NOTE | 2021-07-17 14:14 | NUR ---
VIANNEY BROUSSARD, HSE MANAGER OF THE PT ASSIGNED [facility], PHONE NUMBER [phone], CALLED AND SAID THE FOLLOWIN. PT'S PMD IS DR. DUBOSE, , WHO DIAGNOSED PT WITH DEMENTIA AND NOT BEING ABLE TO MAKE DECISION FOR SELF. 2. PT'S VISITING NURSE IS CARLEE, 3. FAMILY/FRIEND CONTACT IS DANETTE, 4. PT'S WHO WAS THE ONLY CERTIFIED MEDICAL CODER TODAY. 5. PT IS LIVING IN A VERY POOR CONDITION, UNABLE TO CARRY ADL INCLUDING FEEDING SELF, PT'S NEIGHBORS HAVE BEEN HELPING THE PT. NOTE TO HSE MANAGER: PLEASE CONTACT VIANNEY BROUSSARD WITH UPDATES.
[2021-07-17 14:51] LABS: HEMATOCRIT 46.9 % (31.2-41.9); MEAN CORPUSCULAR HEMOGLOBIN 29.1 uug (24.7-32.8); MEAN CORPUSCULAR VOLUME 89.8 fL (75.5-95.3); PLATELET COUNT (AUTO) 288 K/uL (179-408)
--- NOTE | 2021-07-17 15:02 | NUR ---
CALLED PT'S VISITING NURSE, CARLEE, AND LEFT A MESSAGE THAT WE NEED PT,S MED LIST.
[2021-07-17 15:09] LABS: ALANINE AMINOTRANSFERASE 18 U/L (14-59); ALKALINE PHOSPHATASE 130 U/L (50-136); ASPARTATE AMINOTRANSFERASE 17 U/L (15-37); BILIRUBIN,DIRECT 0.2 mg/dL (0.0-0.2); BILIRUBIN,TOTAL 0.8 mg/dL (0.2-1.0); CARBON DIOXIDE 26 mmol/L (21-32); CHLORIDE 101 mmol/L (98-107); CREATININE 0.9 mg/dL (0.6-1.3); GLUCOSE 90 mg/dL (74-106); POTASSIUM 3.9 mmol/L (3.5-5.1); TOTAL PROTEIN, SERUM 7.9 g/dL (6.4-8.2); UREA NITROGEN, BLOOD 20 mg/dL (7-18)
--- NOTE | 2021-07-17 15:20 | NUR ---
CARLEE PT'S VISITING NURSE CALLED BACK AND PROVIDED THE MED LIST. SEE THE MED RECON
[2021-07-17] MEDS ORDERED: BENA20TA78 PO (15:40)
[2021-07-17 17:03] LABS: *BILIRUBIN,URIN 2+ (NEGATIVE); *BLOOD, URINE 3+ (NEGATIVE); *COLOR,URINE YELLOW (YELLOW); *KETONES,URINE 3+ (NEGATIVE); LEUKOCYTE ESTERASE ,URINE 1+ (NEGATIVE); NITRITE, URINE NEGATIVE (NEGATIVE); UGLUCOSE NEGATIVE (NEGATIVE)
[2021-07-17 17:07] LABS: *CLARITY,URINE SLIGHTLY CLOUDY (CLEAR)
[2021-07-17 17:08] LABS: BACTERIA,URINE MANY /HPF (NONE SEEN); SQUAMOUS EPITHELIAL CELL,UR FEW /HPF (NONE SEEN); WBC,URINE 50-80 /HPF (0-3)
--- NOTE | 2021-07-17 17:10 | NUR ---
pt refused to eat anything at this time. offered juice for pt.
--- NOTE | 2021-07-17 17:20 | NUR ---
CALLED [facility] PRESCHOOL TEACHER'S ASSISTANT FOR MIDLINE PLACEMENT.
--- NOTE | 2021-07-17 17:26 | NUR ---
DR. SHER ADMITTED THE PT. TRANSFER TO FLOOR PENDING ON BED AVAILABILITY.
[2021-07-17] MEDS ORDERED: CEFTRIAXONE 1 G in IV DEXTROSE 5% 50 ML IV ONE (17:30)
--- NOTE | 2021-07-17 18:05 | NUR ---
ETA FOR MIDLINE 2100 PER [facility] NUMERICAL ANALYSIS GROUP MANAGER.
[2021-07-17] MEDS ORDERED: ACETAMINOPHEN 325 MG TABLET PO PRN (19:00)
[2021-07-17] MEDS ORDERED: ENALAPRILAT DIHYDRATE 1.25 MG/1 ML VIAL IV PRN (19:00)
[2021-07-17] MEDS ORDERED: HYDROCODONE/APAP 5-325MG TABLET PO PRN (19:00)
[2021-07-17] MEDS ORDERED: ONDANSETRON 4 MG/2 ML VIAL IV PRN (19:00)
[2021-07-17] MEDS ORDERED: GABAPENTIN 100 MG CAPSULE PO SCH (19:00)
[2021-07-17] MEDS ORDERED: TEMAZEPAM 15 MG CAPSULE PO PRN (19:00)
[2021-07-17] MEDS ORDERED: MAGNESIUM HYDROXIDE 30 ML LIQUID UDC PO PRN (19:00)
--- NOTE | 2021-07-17 19:05 | NUR ---
RECEIVED REPORT FROM BILLY ALBARADO. PT NOTED TO BE IN BED, RESTING COMFORTABLY. DENIES ANY PAIN/DISCOMFORT AT THIS TIME. A/O X2.
--- NOTE | 2021-07-17 20:23 | NUR ---
GAVE REPORT TO BILLY STRANGE.
--- NOTE | 2021-07-17 20:50 | NUR ---
UNABLE TO ADMINISTER ATB, MIDLINE NURSE COMING AT 2100.
--- NOTE | 2021-07-17 21:00 | NUR ---
Pt. admitted to [facility] , under care of Dr. MEJIA DX: FAILURE TO THRIVE, DEHYDRATION, UTI Belongs List completed
[2021-07-17] MEDS ORDERED: CEFTRIAXONE 1 G VIAL ONE (22:00)
[2021-07-17] MEDS: CEFTRIAXONE 1 G in IV DEXTROSE 5% 50 ML IV SCH (22:15)
[2021-07-17] MEDS: DOCUSATE SODIUM 100 MG CAPSULE PO SCH (22:24)
[2021-07-17 23:00] VITALS: BP 188/88
--- NOTE | 2021-07-18 02:13 | NUR ---
Admitted 76 y/o female to [facility] at 2056H, accompanied by ER nurse with dx of AMS/UTI. She is alert and oriented x2, forgetful. On room air, saturating at 96%. Midline on FEMI is patent and intact. Admission process observed, full body assessment done, and belongings list filled up. Started on Rocephin 1G IV, infusing well. Patient is noted with BP 184/81, Vasotec IV given at 2215H. BP rechecked after an hour, 167/70. She verbalized feeling better. HOB kept elevated. All needs attended. Call light placed within reach. Will continue to monitor.
[2021-07-18 04:00] VITALS: BP 146/70
--- NOTE | 2021-07-18 05:56 | NUR ---
Pt slept throughout the night, no respiratory distress noted. Easily arousable for care. BP 146/70 at 0400H. Denies pain and discomfort at this time. Due meds given on time and tolerated well. All needs attended. Call light placed within reach. Frequent visual checks done. Will endorse to next shift for continuity of care.
[2021-07-18] MEDS: LEVOTHYROXINE SODIUM 150 MCG TABLET PO SCH (06:04)
[2021-07-18] MEDS: PANTOPRAZOLE SODIUM 40 MG TABLET.DR PO SCH (06:04)
[2021-07-18 06:19] LABS: HEMATOCRIT 39.2 % (31.2-41.9); MEAN CORPUSCULAR HEMOGLOBIN 29.6 uug (24.7-32.8); MEAN CORPUSCULAR VOLUME 89.3 fL (75.5-95.3); PLATELET COUNT (AUTO) 248 K/uL (179-408)
[2021-07-18 06:46] LABS: THYROID STIMULATING HORMONE 11.302 mIU/mL (0.358-3.740)
[2021-07-18 07:16] LABS: BILIRUBIN,TOTAL 0.6 mg/dL (0.2-1.0); CREATININE 0.7 mg/dL (0.6-1.3); POTASSIUM 3.1 mmol/L (3.5-5.1); TOTAL PROTEIN, SERUM 6.4 g/dL (6.4-8.2)
[2021-07-18] MEDS: MULTIVITAMINS,THERAPEUTIC TABLET PO SCH (08:30)
[2021-07-18] MEDS: DILTIAZEM HCL CD 240 MG CAP.SR.24H PO SCH (08:38)
[2021-07-18] MEDS ORDERED: POTASSIUM CHLORIDE 20 MEQ TAB.PRT.SR PO ONE (09:45)
[2021-07-18] MEDS: BENAZEPRIL HCL 10 MG TABLET PO SCH (10:14)
[2021-07-18 11:13] VITALS: BP 150/73
[2021-07-18 15:12] VITALS: BP 135/79
--- NOTE | 2021-07-18 15:19 | NUR ---
Clinical Gre Tutor Note Consult was ordered for continuity of care. Patient appeared to be alert and oriented 4x. Patient was able to engage in conversation with SW, but was soft spoken. Patient shared that her a while ago but could not remember how long ago and did not have anyone to care for her upon discharge. SW provided education about SNFs and asked patient if that was something she was interested in. Patient asked questions about SNF but agreed with having a SNF referral as she shared she does not have any family or friends to care for her. aids social worker advised Ana in case management that patient is requesting SNF placement.
[2021-07-18] MEDS ORDERED: VORTIOXETINE HYDROBROMIDE 5 MG PO SCH (18:00)
[2021-07-18 20:10] VITALS: BP 123/51
[2021-07-18] MEDS: DOCUSATE SODIUM 100 MG CAPSULE PO SCH (21:03)
[2021-07-18] MEDS: CEFTRIAXONE 1 G in IV DEXTROSE 5% 50 ML IV SCH (21:04)
[2021-07-19 04:25] VITALS: BP 152/67
--- NOTE | 2021-07-19 05:30 | NUR ---
Pt slept throughout the night. Able to make needs known. Denies SOB or chest pain. IV site intact. Safety and comfort provided. No other issues or concerns at this time, will endorse to day shift.
[2021-07-19] MEDS: PANTOPRAZOLE SODIUM 40 MG TABLET.DR PO SCH (06:27)
[2021-07-19] MEDS: LEVOTHYROXINE SODIUM 150 MCG TABLET PO SCH (06:27)
--- NOTE | 2021-07-19 07:30 | NUR ---
Patient received in bed with eyes closed, but easily arousable. On RA with no SOB or difficulties breathing. No acute distress noted. Left FA IV patent with no redness or swelling. Call light within easy reach. Will continue to monitor.
[2021-07-19 07:55] LABS: HEMATOCRIT 38.7 % (31.2-41.9); MEAN CORPUSCULAR HEMOGLOBIN 29.6 uug (24.7-32.8); MEAN CORPUSCULAR VOLUME 90.4 fL (75.5-95.3); PLATELET COUNT (AUTO) 243 K/uL (179-408)
[2021-07-19 08:14] LABS: CREATININE 0.8 mg/dL (0.6-1.3); MAGNESIUM 1.6 mg/dL (1.8-2.4); PHOSPHOROUS 3.4 mg/dL (2.5-4.9); POTASSIUM 3.1 mmol/L (3.5-5.1)
[2021-07-19] MEDS: MULTIVITAMINS,THERAPEUTIC TABLET PO SCH (08:25)
[2021-07-19] MEDS: BENAZEPRIL HCL 10 MG TABLET PO SCH (08:25)
[2021-07-19] MEDS: DILTIAZEM HCL CD 240 MG CAP.SR.24H PO SCH (08:25)
[2021-07-19] MEDS ORDERED: POTASSIUM CHLORIDE 20 MEQ TAB.PRT.SR PO ONE (10:15)
[2021-07-19] MEDS ORDERED: MAGNESIUM SULFATE/D5W 100 ML IV SCH (10:15)
[2021-07-19 11:02] VITALS: BP 139/85
[2021-07-19 11:04] VITALS: BP 131/53
[2021-07-19] MEDS ORDERED: MAGNESIUM OXIDE 400 MG TABLET PO ONE (12:30)
[2021-07-19] MEDS: CEphaleXIN 500 MG CAPSULE PO SCH ×2 (13:47→20:15)
[2021-07-19 15:13] VITALS: BP 135/59
--- NOTE | 2021-07-19 16:00 | NUR ---
Patient pulled out her midline last night and peripheral IV. She states that they came out after position changes, but unlikely because accesses were wrapped. Multiple PIV insertions attempted, but failed. Informed Dr. Muñoz and he is aware. Rocephin IV changed to Kephlex PO. Patient has zofran and vasotec IV PRN. aware of PRN IV medications and that patient does not have IV access at this time. Does not want to order another midline at this time. No new orders. Will continue to monitor.
[2021-07-19] MEDS: DOCUSATE SODIUM 100 MG CAPSULE PO SCH (20:15)
[2021-07-19 20:40] VITALS: BP 126/55
[2021-07-19] MEDS ORDERED: CEphaleXIN 500 MG CAPSULE PO SCH (21:00)
[2021-07-20 04:15] VITALS: BP 154/61
[2021-07-20] MEDS: PANTOPRAZOLE SODIUM 40 MG TABLET.DR PO SCH (06:15)
[2021-07-20] MEDS: LEVOTHYROXINE SODIUM 150 MCG TABLET PO SCH (06:15)
--- NOTE | 2021-07-20 06:24 | NUR ---
Patient asleep for most of the night. AOx1. On room air. No signs of acute distress. Compliant with medications and care. Needs anticipated and met. Call light within reach. Bed alarm on for safety. Will endorse to incoming shift for continuity of care.
[2021-07-20] MEDS: DILTIAZEM HCL CD 240 MG CAP.SR.24H PO SCH (08:04)
[2021-07-20] MEDS: CEphaleXIN 500 MG CAPSULE PO SCH ×2 (08:04→20:02)
[2021-07-20] MEDS: MULTIVITAMINS,THERAPEUTIC TABLET PO SCH (08:05)
[2021-07-20] MEDS: BENAZEPRIL HCL 10 MG TABLET PO SCH (08:05)
[2021-07-20] MEDS ORDERED: AMLODIPINE 2.5 MG TABLET PO SCH (09:30)
[2021-07-20] MEDS: hydrALAZINE HCL 25 MG TABLET PO SCH ×2 (10:48→20:03)
[2021-07-20 12:00] VITALS: BP 117/60
[2021-07-20 16:35] VITALS: BP 122/59
[2021-07-20] MEDS: DOCUSATE SODIUM 100 MG CAPSULE PO SCH (20:02)
[2021-07-20 20:42] VITALS: BP 137/57
[2021-07-21 04:50] VITALS: BP 154/64
[2021-07-21] MEDS: LEVOTHYROXINE SODIUM 150 MCG TABLET PO SCH (06:04)
[2021-07-21] MEDS: PANTOPRAZOLE SODIUM 40 MG TABLET.DR PO SCH (06:04)
[2021-07-21 06:12] LABS: HEMATOCRIT 36.9 % (31.2-41.9); MEAN CORPUSCULAR HEMOGLOBIN 29.6 uug (24.7-32.8); PLATELET COUNT (AUTO) 239 K/uL (179-408)
[2021-07-21 06:28] LABS: BILIRUBIN,TOTAL 0.4 mg/dL (0.2-1.0); CREATININE 0.8 mg/dL (0.6-1.3); MAGNESIUM 1.9 mg/dL (1.8-2.4); PHOSPHOROUS 2.8 mg/dL (2.5-4.9); POTASSIUM 3.2 mmol/L (3.5-5.1)
[2021-07-21] MEDS ORDERED: POTASSIUM CHLORIDE 20 MEQ TAB.PRT.SR PO ONE (08:00)
[2021-07-21] MEDS: MULTIVITAMINS,THERAPEUTIC TABLET PO SCH (09:12)
[2021-07-21] MEDS: CEphaleXIN 500 MG CAPSULE PO SCH (09:12)
[2021-07-21] MEDS: BENAZEPRIL HCL 10 MG TABLET PO SCH (09:13)
[2021-07-21] MEDS: hydrALAZINE HCL 25 MG TABLET PO SCH (09:13)
[2021-07-21] MEDS: DILTIAZEM HCL CD 240 MG CAP.SR.24H PO SCH (09:14)
[2021-07-21 11:53] VITALS: BP 141/58
[2021-07-21] MEDS ORDERED: MAGN400O6 PO (15:16)
[2021-07-21] MEDS ORDERED: TEMA15CA PO (15:16)
[2021-07-21] MEDS ORDERED: PANT40TA49 PO (15:16)
[2021-07-21] MEDS ORDERED: ATOR10TA PO (15:16)
[2021-07-21] MEDS ORDERED: HYDR-894 PO (15:16)
[2021-07-21] MEDS ORDERED: DOCU-141 PO (15:16)
[2021-07-21] MEDS ORDERED: ACET325T53 PO (15:16)
[2021-07-21] MEDS ORDERED: HYDR-3972 PO (15:16)
[2021-07-21 15:38] VITALS: BP 124/52
--- NOTE | 2021-07-21 17:33 | NUR ---
Patient picked up by JOHAN Garcia via [facility]. Transfer to [facility]. A/O x2. Vital signs stable. No acute distress noted. No c/o pain. Skin intact. All belongings sent with patient. Discharge instructions given to patient.
== END 2021-07-21 17:00 | DRG 871 ==
LOC: ER 13:36 → MEDSURG3 20:29
PROVIDERS: ADMIT Internal Medicine; ATTEND Internal Medicine
PROC: 05H633Z Insertion of Infusion Device into Left Subclavian Vein, Percutaneous Approach (ICD-10-PCS; principal; 2021-07-17)
PROC: B547ZZA Ultrasonography of Left Subclavian Vein, Guidance (ICD-10-PCS; 2021-07-17)
DX: A41.9 Sepsis, unspecified organism (principal); G92.8 Other toxic encephalopathy; J69.0 Pneumonitis due to inhalation of food and vomit; I50.31 Acute diastolic (congestive) heart failure; N39.0 Urinary tract infection, site not specified; D68.59 Other primary thrombophilia; J90 Pleural effusion, not elsewhere classified; E03.9 Hypothyroidism, unspecified; E78.5 Hyperlipidemia, unspecified; Z90.49 Acquired absence of other specified parts of digestive tract; E66.9 Obesity, unspecified; F01.50 Vascular dementia, unspecified severity, without behavioral disturbance, psychotic disturbance, mood disturbance, and anxiety; K21.9 Gastro-esophageal reflux disease without esophagitis; Z20.822 Contact with and (suspected) exposure to COVID-19; I11.0 Hypertensive heart disease with heart failure; Z87.891 Personal history of nicotine dependence; K44.9 Diaphragmatic hernia without obstruction or gangrene; K57.30 Diverticulosis of large intestine without perforation or abscess without bleeding; M19.90 Unspecified osteoarthritis, unspecified site; Z88.0 Allergy status to penicillin; H40.9 Unspecified glaucoma; Z68.35 Body mass index [BMI] 35.0-35.9, adult; Z79.890 Hormone replacement therapy; Z91.14 Patient's other noncompliance with medication regimen; B96.1 Klebsiella pneumoniae [K. pneumoniae] as the cause of diseases classified elsewhere; I25.118 Atherosclerotic heart disease of native coronary artery with other forms of angina pectoris
CPT/HCPCS: 36415; 70030-TC; 70450; 71045; 82652; 83605; 83735; 84100; 84443; 85025; 87040; 87077; 87086; 93005; 93307; 97161; A4663; C1758; G0378; J0696; J3475; J3490; J7030; J7060